=== PATIENT | male | born 1945 | race Caucasian/White ===

== ENCOUNTER 2020-04-16 07:41 | Day surgery (SDC) | payer MEDICARE, OTHER ==
[~2020-04-16] VITALS: Ht 177.8 cm; Wt 90.4 kg
[2020-04-16 08:08] VITALS: BP 130/82; PULSE 79; TEMP 97.9
[2020-04-16] MEDS ORDERED: MULTIPLE VITAMI1 CAP PO (08:13)
--- NOTE | 2020-04-16 08:15 | NUR ---
TO RM AT 0745- CALL LIGHT IN REACH DAUGHTER AT BEDSIDE.
[2020-04-16 09:50] VITALS: BP 99/71; PULSE 69; TEMP 98.4
--- NOTE | 2020-04-16 09:50 | NUR ---
Patient brought back to [facility] [address] via cart. Ambulated with one assist. Placed on monitors, stable. Daughter at bedside. Patient is awake but remains drowsy. Denies pain or nausea. Requests muffin and juice. Report recieved from Nallely CAMACHO. All questions answered. Warm blanket provied, call [facility] within reach. Will continue to monitor.
[2020-04-16 10:05] VITALS: BP 102/76; PULSE 71
--- NOTE | 2020-04-16 10:05 | NUR ---
Tolerating food and drink without difficulty. Patient is much more alert at this time. Will continue to monitor.
[2020-04-16 10:20] VITALS: BP 114/76; PULSE 61
--- NOTE | 2020-04-16 10:30 | NUR ---
Patient states he feels ready to go home now. Tolerated food and drink, vital signs stable. IV removed without difficulty. Dishcarge instructions reviewed with patient and daughter. All questions answered. Patient to get dressed at this time. Steady on feet.
--- NOTE | 2020-04-16 10:37 | NUR ---
Patient brought down to lobby via wheel chair. Daughter met at front to drive home. All belongings in hand.
== END 2020-04-16 10:37 | disposition home or self-care (01) ==
LOC: SDCO 07:41
DX: K57.30 Diverticulosis of large intestine without perforation or abscess without bleeding (principal); Z12.11 Encounter for screening for malignant neoplasm of colon; Z11.59 Encounter for screening for other viral diseases; Z90.49 Acquired absence of other specified parts of digestive tract; Z90.89 Acquired absence of other organs
CPT/HCPCS: J2704; J7120